=== PATIENT | female | born 1955 | race Caucasian/White ===

== ENCOUNTER 2018-03-02 15:43 | Emergency (ER) | payer MEDICARE ==
[2018-03-02 17:41] VITALS: BP 112/74
[2018-03-02] MEDS ORDERED: Azithromycin TAB* 250 MG PO ONE (18:25)
--- NOTE | 2018-03-02 18:28 | UC ---
Respiratory Complaint HPI - HPI Summary HPI Summary: This patient is a 63 year old F presenting [place] [facility] believes she has bronchitis and states sx began yesterday. The patient rates the pain 10/10 in severity. Patient reports sore throat, productive cough, fever, post nasal drip, and chest tightness w/ cough. Patient denies ear pair, CP, chills, and wheezing. She states this feels like her typical sx when she gets bronchitis and is requesting abx. She states that she has Afib and that the chest sensation does not feel like it is heart related. - History of Current Complaint Chief Complaint: UCRespiratory Stated Complaint: COUGH Time Seen by Provider: 03/02/18 18:19 Hx Obtained From: Patient Onset/Duration: Lasting Days - 1, Still Present Timing: Constant Severity Initially: Severe Severity Currently: Severe Pain Intensity: 10 Pain Scale Used: 0-10 Numeric Character: Cough: Productive Associated Signs And Symptoms: Positive: Negative - CP, Fever. Negative: Chills - Allergies/Home Medications Allergies/Adverse Reactions: Allergies Allergy/AdvReac Type Severity Reaction Status Date / Time metronidazole [From Flagyl] Allergy Rash Verified 03/02/18 17:42 NSAIDS (Non-Steroidal Allergy Nausea Verified 03/02/18 17:42 Anti-Inflamma sulindac [From Clinoril] Allergy Bleeding Verified 03/02/18 17:42 Home Medications: Home Medications Famotidine TAB* [Pepcid 20 MG TAB*] 1 tab 03/02/18 [History] PMH/Surg Hx/FS Hx/Imm Hx Cardiovascular History: Atrial Fibrillation Neurological History: Other Other Neurological History: fibromyalgia Other History Of: Anticoagulant Therapy - Surgical History Surgical History: Yes Surgery Procedure, Year, and Place: 09/21 ANEURYSM CLIPPED AT [facility], ANEURYSM COILED X2 01/20 AT [facility], L4-S1 FUSED 1998 AT [facility] [place], PARTIAL HYSTERECTOMY 2004 AT [facility] [place], DORSAL COLUMN STIMULATOR 1997 AND FUSION PUMP 1998, FEMUR MARGARITA 11/22 NO MRIs DUE TO DORSAL COLUMN/SPINAL STIMULATOR- NOT MRI SAFE. Patient states dorsal column stimulator and intrathecal pump removed June 2015 - Family History Known Family History: Positive: Cardiac Disease, Hypertension - Social History Alcohol Use: None Substance Use Type: None Substance Use Comment - Amount & Last Used: oxycontin and oxycodone Smoking Status (MU): Light Every Day Tobacco Smoker Type: Cigarettes Amount Used/How Often: 5-10 cigarettes/day Length of Time of Smoking/Using Tobacco: 38 Have You Smoked in the Last Year: Yes When Did the Patient Quit Smoking/Using Tobacco: 2011 - Immunization History Most Recent Influenza Vaccination: 2013 Most Recent Tetanus Shot: pt not sure Most Recent Pneumonia Vaccination: 2013 Review of Systems Constitutional: Fever ENT: Sore Throat, Other - post nasal drip Respiratory: Cough Cardiovascular: Other - chest tightness with cough All Other Systems Reviewed And Are Negative: Yes Physical Exam - Summary Physical Exam Summary: General: well-appearing, no pain distress Skin: warm, color reflects adequate perfusion, dry Head: normal Eyes: EOMI, JERILYN ENT: positive rhinorrhea, positive posterior pharynx erythema, anterior cervical lymphadenopathy Neck: supple, nontender Respiratory: CTA, breath sounds present Cardiovascular: RRR Abdomen: soft, nontender Bowel: present Musculoskeletal: normal, strength/ROM intact Neurological: sensory/motor intact, A&O x3 Psychological: affect/mood appropriate Triage Information Reviewed: Yes Vital Signs: Initial Vital Signs Temp 97.2 F 03/02/18 17:36 Pulse 112 03/02/18 17:36 Resp 18 03/02/18 17:36 BP 112/74 03/02/18 17:36 Pulse Ox 99 03/02/18 17:36 Vital Signs Reviewed: Yes UC Diagnostic Evaluation - Laboratory O2 Sat by Pulse Oximetry: 99 Respiratory Course/Dx - Course Course Of Treatment: VIRAL VERSES BACTERIAL CAUSES OF INFECTION AND THE ROLE OF ANTIBIOTICS WERE DISCUSSED. AT THIS TIME, THE PATIENT PREFERS TO START ANTIBIOTICS. - Differential Dx/Diagnosis Provider Diagnoses: BRONCHITIS Discharge - Sign-Out/Discharge Documenting (check all that apply): Patient Departure All imaging exams completed and their final reports reviewed: No Studies - Discharge Plan Condition: Stable Disposition: HOME Prescriptions: Albuterol HFA INHALER* [Ventolin HFA Inhaler*] 2 puff INH Q4H PRN #1 mdi PRN Reason: Wheezing Azithromycin 250 mg PO DAILY #4 tablet Patient Education Materials: Acute Bronchitis (ED) Referrals: Jesus Rod MD [Primary Care Provider] - Additional Instructions: FOLLOW UP WITH YOUR DOCTOR IF NOT COMPLETELY IMPROVED. GET RECHECKED FOR ANY WORSENING OF YOUR CONDITION OR QUESTIONS OR CONCERNS. - Billing Disposition and Condition Condition: STABLE Disposition: Home - Attestation Statements Document Initiated by Gioibe: Yes Documenting Scribe: Armani Devi Provider For Whom Gioibdemond is Documenting (Include Credential): Chencho Norris MD Scribe Attestation: IArmani scribed for Chencho Norris MD on 03/02/18 at 2219. Scribe Documentation Reviewed: Yes Provider Attestation: The documentation as recorded by the Armani austin accurately reflects the service I personally performed and the decisions made by me, Chencho Norris MD
== END 2018-03-02 18:40 | disposition home or self-care (01) ==
LOC: UCEAST 15:43
DX: J40 Bronchitis, not specified as acute or chronic (principal); Z88.1 Allergy status to other antibiotic agents; Z88.6 Allergy status to analgesic agent
CPT/HCPCS: 99212; A9270-GY; G0463

== ENCOUNTER 2021-02-25 10:19 | Inpatient (IN) ==
[2021-02-25] MEDS ORDERED: Albuterol HFA INHALER 8 gm MDI INH ONE (13:50)
[2021-02-25 14:01] LABS: ABS Basophils 0.1 10^3/ul (0-0.2); ABS Eosinophils 0.1 10^3/ul (0-0.6); ABS Lymphocytes 2.9 10^3/ul (1.0-4.8); ABS Monocytes 0.8 10^3/ul (0-0.8); ABS Neutrophils 7.3 10^3/ul (1.5-7.7); Eosinophil % 1.3 %; Hematocrit 37 % (35-47); Hemoglobin 12.1 g/dL (12.0-16.0); Lymphocyte % 25.9 %; Mean Corpuscular HGB Conc 33 g/dL (31-36); Mean Corpuscular Hemoglobin 33 pg (27-31); Mean Corpuscular Volume 99 fL (80-97); Mean Platelet Volume 7.6 fL (7.4-10.4); Platelet Count 278 10^3/uL (150-450); Red Blood Count 3.68 10^6 /uL (3.70-4.87); Red Cell Distribution Width 16 % (10-15); White Blood Count 11.3 10^3/uL (3.5-10.8)
[2021-02-25 14:16] LABS: Albumin/Globulin Ratio 1.2 (1-3); C Reactive Protein 125.41 mg/L (<8.01); Calcium 9.2 mg/dL (8.6-10.3); EGFR African American 81.2 (>60); EGFR Non-African American 67.1 (>60); Globulin 3.4 g/dL (2-4); Potassium 3.4 mmol/L (3.5-5.0); Total Bilirubin 0.4 mg/dL (0.2-1.0); Total Protein 7.4 g/dL (6.4-8.9)
[2021-02-25 14:17] LABS: Activated Partial Thrombo Time 67.2 seconds (26.0-38.0); Troponin I 0.01 ng/mL (<0.03)
[2021-02-25 14:25] LABS: Urine Appearance Clear; Urine Blood 1+ (Negative); Urine Color Yellow; Urine Ketones Negative (Negative); Urine Protein 1+(30 mg/dL) (Negative); Urine Specific Gravity 1.026 (1.002-1.030); Urine Urobilinogen Negative (Negative)
[2021-02-25 14:26] LABS: Urine Bilirubin Negative (Negative); Urine Glucose Negative (Negative); Urine Nitrite Negative (Negative)
[2021-02-25 14:41] LABS: Urine Bacteria Absent (Absent); Urine Red Blood Cell 1+(3-5/hpf) (Absent); Urine Squamous Epithelial Cell Present (Absent); Urine White Blood Cell Absent (Absent)
[2021-02-25 14:47] LABS: INR 5.27 (0.86-1.15)
[2021-02-25] MEDS ORDERED: Albuterol/Ipratropium NEB.SOL (2.5/0.5 MG) 3 ML NEB.SOLN INH ONE (15:33)
[2021-02-25] MEDS ORDERED: Warfarin - No Order Today **NOTE FOLLOW UP ONE (17:00)
[2021-02-25 17:06] LABS: Rapid COVID-19 Molecular Undetected (Undetected)
[2021-02-25] MEDS ORDERED: Magnesium Hydroxide LIQ 30 ML UDC PO PRN (17:25)
[2021-02-25] MEDS ORDERED: Potassium Chlor 20 meq TAB.ER PO ONE (17:40)
[2021-02-25] MEDS ORDERED: Warfarin per PHARMACY **NOTE FOLLOW UP SCH (18:00)
[2021-02-25] MEDS: oxyCODONE/Acetamin 5/325 mg TAB PO PRN (19:34)
[2021-02-25] MEDS: Nicotine PATCH 21 MG/24 HR PATCH TRANSDERM SCH (19:35)
[2021-02-25] MEDS: Mometasone/Formoter 100/5 MDI INH SCH (22:23)
[2021-02-25] MEDS: Albuterol HFA INHALER 8 gm MDI INH PRN (22:26)
[2021-02-26] MEDS: DULoxetine DR 60 mg CAP PO SCH (07:59)
[2021-02-26] MEDS: oxyCODONE/Acetamin 5/325 mg TAB PO PRN ×3 (08:00→21:14)
[2021-02-26] MEDS: Nicotine PATCH 21 MG/24 HR PATCH TRANSDERM SCH (08:02)
[2021-02-26] MEDS: Mometasone/Formoter 100/5 MDI INH SCH ×2 (08:41→21:42)
[2021-02-26] MEDS: SPIRIVA Respimat (tiotropium) 2.5 mcg/inh Inhaler INH SCH (08:43)
[2021-02-26] MEDS: methylPREDNISolone SOD 40 mg/ml 1 ml VIAL IV SCH ×2 (10:54→21:13)
[2021-02-26 11:04] LABS: INR 4.69 (0.86-1.15)
[2021-02-26 11:07] LABS: EGFR African American 85.9 (>60); Potassium 3.9 mmol/L (3.5-5.0)
[2021-02-26 11:19] LABS: ABS Lymphocytes 1.3 10^3/ul (1.0-4.8); ABS Monocytes 0.4 10^3/ul (0-0.8); ABS Neutrophils 7.4 10^3/ul (1.5-7.7); Eosinophil % 0.1 %; Hematocrit 37 % (35-47); Hemoglobin 12.3 g/dL (12.0-16.0); Mean Corpuscular HGB Conc 33 g/dL (31-36); Mean Corpuscular Hemoglobin 34 pg (27-31); Mean Corpuscular Volume 102 fL (80-97); Mean Platelet Volume 7.5 fL (7.4-10.4); Platelet Count 244 10^3/uL (150-450); Red Blood Count 3.61 10^6 /uL (3.70-4.87); Red Cell Distribution Width 16 % (10-15); White Blood Count 9.1 10^3/uL (3.5-10.8)
[2021-02-26] MEDS ORDERED: Warfarin - No Order Today **NOTE FOLLOW UP ONE (17:00)
[2021-02-26] MEDS ORDERED: Warfarin DAILY REMINDER **NOTE FOLLOW UP SCH (17:00)
[2021-02-26] MEDS: Albuterol HFA INHALER 8 gm MDI INH PRN (21:40)
[2021-02-27] MEDS: oxyCODONE/Acetamin 5/325 mg TAB PO PRN (06:29)
[2021-02-27 06:36] LABS: INR 3.14 (0.86-1.15)
[2021-02-27] MEDS: Mometasone/Formoter 100/5 MDI INH SCH (08:05)
[2021-02-27] MEDS: Albuterol HFA INHALER 8 gm MDI INH PRN (08:06)
[2021-02-27] MEDS: SPIRIVA Respimat (tiotropium) 2.5 mcg/inh Inhaler INH SCH (08:06)
[2021-02-27] MEDS: DULoxetine DR 60 mg CAP PO SCH (08:48)
[2021-02-27] MEDS: methylPREDNISolone SOD 40 mg/ml 1 ml VIAL IV SCH (08:48)
[2021-02-27] MEDS: Nicotine PATCH 21 MG/24 HR PATCH TRANSDERM SCH (08:48)
[2021-02-27 12:06] VITALS: BP 141/72
== END 2021-02-27 15:45 | disposition home or self-care (01) | DRG 192 ==
LOC: ED 10:19 → MED 17:25 → SUATTDRO 17:25
PROVIDERS: ADMIT Internal Medicine; ATTEND Hospitalist

== ENCOUNTER 2021-07-05 05:56 | Inpatient (IN) ==
[~2021-07-05 05:56] MED LIST: BUPIVACAINE **LIPOSOME/PF 13.3 MG/ML (266MG/ 20ML) VIAL (RESTRICTED) INFIL ONE
[2021-07-05] MEDS ORDERED: Buffered Lidocaine 1% SYRIN 1 ml INTRADERM ONE ×2 (06:00→07:28)
[2021-07-05] MEDS ORDERED: Lactated Ringers 1000 ml BAG 1,000 ML IV SCH (06:00)
[2021-07-05] MEDS ORDERED: Famotidine IV 10 MG/ML 2 ml VIAL (20 mg) IV ONE (06:00)
[2021-07-05] MEDS ORDERED: Bupivacaine 0.25% SDV 30 ML ONE ×2 (07:01→09:09)
[2021-07-05] MEDS ORDERED: Bupivacaine 0.5% W/EPI SDV 10 ML VIAL INJ ONE (07:01)
[2021-07-05] MEDS ORDERED: Lidocaine 1% w EPI 1:200,000 SDV 30 ML VIAL ONE (07:01)
[2021-07-05] MEDS ORDERED: Midazolam 5 mg/5 ml VIAL 1 mg/ml 5 ml VIAL (5 mg) ONE (07:14)
[2021-07-05] MEDS ORDERED: fentaNYL 100 mcg/2 ml 50 MCG/ML VIAL ONE (07:14)
[2021-07-05] MEDS ORDERED: ROPIVACAINE 5 MG/ML 30 ML BTL (0.5%) ONE (07:15)
[2021-07-05] MEDS ORDERED: Lidocaine 2% PF 5 ML VIAL ONE ×2 (07:15→07:27)
[2021-07-05] MEDS ORDERED: Famotidine IV 10 MG/ML 2 ml VIAL (20 mg) ONE (07:22)
[2021-07-05] MEDS ORDERED: ceFAZolin 2 GM PREMIX 2 GM/50 ML BAG ONE (07:22)
[2021-07-05] MEDS ORDERED: Rocuronium 50 mg VIAL 10 mg/ml 5 ml VIAL (50 mg) ONE (07:27)
[2021-07-05] MEDS ORDERED: fentaNYL 250 mcg/5 ml 50 MCG/ML 5 ml VIAL (250 MCG) ONE (07:33)
[2021-07-05] MEDS ORDERED: Ketamine HCL 50 mg/ml 10 ml VIAL (500 MG) ONE (08:23)
[2021-07-05] MEDS ORDERED: EPHEDrine (Pressors) 50 MG/ML VIAL ONE (08:29)
[2021-07-05] MEDS ORDERED: HYDROmorphone 0.5 MG/0.5 ML SYRINGE ONE ×2 (08:52→09:49)
[2021-07-05] MEDS ORDERED: Ondansetron 4 mg VIAL 2 MG/ML 2 ml VIAL IV PRN ×2 (08:58→10:57)
[2021-07-05] MEDS ORDERED: Levalbuterol 0.63MG/3ML NEB UNIT OF USE INH PRN (08:58)
[2021-07-05] MEDS ORDERED: fentaNYL 100 mcg/2 ml 50 MCG/ML VIAL IV PRN (08:58)
[2021-07-05] MEDS ORDERED: Naloxone 0.4 mg VIAL 0.4 mg/ml 1 ml VIAL IV PRN (08:58)
[2021-07-05] MEDS ORDERED: Ondansetron 4 mg VIAL 2 MG/ML 2 ml VIAL ONE (08:59)
[2021-07-05] MEDS ORDERED: Dexamethasone IV 4 MG/ML VIAL 1 ml VIAL ONE (08:59)
[2021-07-05] MEDS ORDERED: Levalbuterol HFA INHALER MDI ONE (09:08)
[2021-07-05] MEDS ORDERED: Magnesium Hydroxide LIQ 30 ML UDC PO PRN (10:57)
[2021-07-05] MEDS ORDERED: Lactulose 30 ml UDC PO PRN (10:57)
[2021-07-05] MEDS ORDERED: diPHENhydraMINE 25 mg TAB PO PRN (10:57)
[2021-07-05] MEDS ORDERED: Ondansetron ODT 4 mg TAB 4 MG TAB PO PRN (10:57)
[2021-07-05] MEDS ORDERED: diPHENhydraMINE IV 50 MG/ML 1 ml VIAL (BENADRYL) IV PRN (10:57)
[2021-07-05] MEDS ORDERED: ceFAZolin 1 GM ADVAN 1 GM in NS 0.9% 50 ML 50 ML IVPB SCH (11:00)
[2021-07-05] MEDS ORDERED: Albuterol HFA INHALER 8 gm MDI INH PRN (11:08)
[2021-07-05] MEDS ORDERED: HYDROmorphone 1 MG/1 ML SYRINGE ONE (11:15)
[2021-07-05] MEDS: HYDROmorphone 1 MG/1 ML SYRINGE IV PRN ×2 (11:16→11:23)
[2021-07-05] MEDS: Lactated Ringers 1000 ml BAG 1,000 ML IV SCH ×2 (12:46→23:28)
[2021-07-05] MEDS: ceFAZolin 1 GM ADVAN 1 GM in NS 0.9% 50 ML 50 ML IVPB SCH (15:24)
[2021-07-05] MEDS: Morphine 2 MG/ML SYRINGE IV PRN (16:52)
[2021-07-05] MEDS: Magnesium Hydroxide LIQ 30 ML UDC PO SCH (21:27)
[2021-07-06] MEDS: ceFAZolin 1 GM ADVAN 1 GM in NS 0.9% 50 ML 50 ML IVPB SCH ×2 (01:28→08:24)
[2021-07-06] MEDS: Morphine 2 MG/ML SYRINGE IV PRN (01:45)
[2021-07-06 06:45] LABS: Hematocrit 26 % (35-47); Mean Platelet Volume 7.1 fL (7.4-10.4); Platelet Count 233 10^3/uL (150-450)
[2021-07-06 06:57] LABS: INR 1.18 (0.86-1.15)
[2021-07-06 07:02] LABS: Calcium 8.7 mg/dL (8.6-10.3); eGFR CKD-EPI 95.9 (>60)
[2021-07-06 07:37] VITALS: BP 128/64
[2021-07-06] MEDS: Magnesium Hydroxide LIQ 30 ML UDC PO SCH (08:38)
[2021-07-06] MEDS ORDERED: CMCS: FLUTICAS/UMECLI/VILANT 100-62.5-25 MDI (NF) INH SCH (09:00)
[2021-07-06] MEDS ORDERED: Vitamin THERAPEUTIC TAB PO SCH (09:00)
[2021-07-06] MEDS ORDERED: DULoxetine DR 60 mg CAP PO SCH (09:00)
== END 2021-07-06 15:20 | disposition home or self-care (01) | DRG 470 ==
LOC: AA 05:56 → SSU 12:14
PROVIDERS: ADMIT Orthopaedic Surgery Sports Medicine; ATTEND Orthopaedic Surgery Sports Medicine

== ENCOUNTER 2022-06-04 19:06 | Inpatient (IN) ==
[2022-06-04] MEDS ORDERED: NS 0.9% 1000 ml BAG 1,000 ML IV ONE (19:15)
[2022-06-04 20:14] LABS: Hematocrit 28 % (35-47); Hemoglobin 9.5 g/dL (12.0-16.0); Mean Corpuscular HGB Conc 34 g/dL (31-36); Mean Corpuscular Hemoglobin 33 pg (27-31); Mean Corpuscular Volume 97 fL (80-97); Platelet Count 231 10^3/uL (150-450); Red Blood Count 2.91 10^6 /uL (3.70-4.87); Red Cell Distribution Width 16 % (10-15); White Blood Count 12.2 10^3/uL (3.5-10.8)
[2022-06-04] MEDS ORDERED: cefTRIAXone 1 gm/50 mL D5W 1 GM/50 ML BAG IV ONE (20:32)
[2022-06-04] MEDS ORDERED: Azithromycin 500 mg/250 ml NS 500 MG/250 ML BAG IVPB ONE (20:32)
[2022-06-04 20:37] LABS: High Sens Troponin Baseline 52 pg/mL (<15)
[2022-06-04 20:41] LABS: INR 5.96 (0.88-1.18)
[2022-06-04 20:59] LABS: Hypochromasia 1+; Macrocytosis 1+; Microcytosis 1+; Polychromasia 1+
[2022-06-04 21:00] LABS: ABS Lymphocytes 0.5 10^3/ul (1.0-4.8); ABS Monocytes 0.3 10^3/ul (0-0.8); ABS Neutrophils 11.5 10^3/ul (1.5-7.7); ALT 33 U/L (7-52); AST 56 U/L (13-39); Albumin 3.2 g/dL (3.2-5.2); Albumin/Globulin Ratio 1.3 (1-3); Alcohol, S < 13 mg/dL (<13); Alkaline Phosphatase 99 U/L (35-149); Anion Gap 10 mmol/L (2-11); Blood Urea Nitrogen 39 mg/dL (6-24); CO2 Carbon Dioxide 25 mmol/L (22-32); Calcium 7.9 mg/dL (8.6-10.3); Chloride 99 mmol/L (101-111); Globulin 2.4 g/dL (2-4); Glucose 104 mg/dL (70-100); Lymphocyte % 3.7 %; Potassium 3.6 mmol/L (3.5-5.0); Sodium 134 mmol/L (135-145); Total Protein 5.6 g/dL (6.4-8.9); Toxic Granulation 1+; eGFR CKD-EPI 16.9 (>60)
[2022-06-04] MEDS ORDERED: Lactated Ringers 1000 ml BAG 1,000 ML IV ONE (21:08)
[2022-06-04 21:36] LABS: Magnesium 2.1 mg/dL (1.9-2.7)
[2022-06-04 21:41] LABS: Phosphorus 2.5 mg/dL (2.5-5.0)
[2022-06-04 21:53] LABS: High Sensitivity Troponin 1 Hr 47 pg/mL (<15)
[2022-06-05] MEDS ORDERED: Phytonadione IV (Adult) 10 MG in NS 0.9% 50 ML 50 ML IV ONE (00:02)
[2022-06-05 01:20] LABS: Urine Appearance Cloudy; Urine Bilirubin Negative (Negative); Urine Color Yellow; Urine Glucose Negative (Negative); Urine Ketones Negative (Negative); Urine Nitrite Negative (Negative); Urine Protein 2+ (100 mg/dL) (Negative); Urine Specific Gravity 1.017 (1.002-1.030); Urine Urobilinogen 0.2 (Negative) (Negative); Urine pH 5.5 (5.0-9.0)
[2022-06-05 01:25] LABS: Urine Chloride Concentration < 22 mmol/L; Urine Potassium Concentration 41.1 mmol/L; Urine Sodium Concentration < 18 mmol/L
[2022-06-05 01:36] LABS: Urine Bacteria 3+ (Absent); Urine Granular Casts Present (Absent); Urine Red Blood Cell 1+(3-5/hpf) (Absent); Urine Squamous Epithelial Cell Present (Absent); Urine White Blood Cell 3+(>20/hpf) (Absent)
[2022-06-05 02:54] LABS: Urine Benzodiazepine Screen None Detected (None Detect); Urine Cannabinoids Screen None Detected (None Detect); Urine Opiates Screen None Detected (None Detect)
[2022-06-05] MEDS ORDERED: Haloperidol 5 mg/ml SDV IV/IM 5 MG/ML AMP IV SLOW PU ONE (03:44)
[2022-06-05] MEDS: Nicotine PATCH 21 MG/24 HR PATCH TRANSDERM SCH (03:59)
[2022-06-05 04:02] LABS: Hematocrit 22 % (35-47); Hemoglobin 7.7 g/dL (12.0-16.0); Mean Corpuscular HGB Conc 35 g/dL (31-36); Mean Corpuscular Hemoglobin 34 pg (27-31); Mean Corpuscular Volume 97 fL (80-97); Mean Platelet Volume 7.8 fL (7.4-10.4); Platelet Count 189 10^3/uL (150-450); Red Blood Count 2.27 10^6 /uL (3.70-4.87); Red Cell Distribution Width 17 % (10-15)
[2022-06-05] MEDS: NORMOSOL-R pH 7.4 1000 mL BAG 1,000 ML IV SCH ×2 (04:04→12:31)
[2022-06-05] MEDS ORDERED: Acetaminophen IV 1 GM/100ML 1,000 MG/100 ML BAG IV ONE ×2 (04:08→04:11)
[2022-06-05 04:12] LABS: INR 4.06 (0.88-1.18)
[2022-06-05 04:20] LABS: ABS Lymphocytes 0.3 10^3/ul (1.0-4.8); ABS Monocytes 0.1 10^3/ul (0-0.8); ABS Neutrophils 7.5 10^3/ul (1.5-7.7); Eosinophil % 0.1 %; Lymphocyte % 3.8 %
[2022-06-05 04:43] LABS: Calcium 7.1 mg/dL (8.6-10.3); Magnesium 1.8 mg/dL (1.9-2.7); Phosphorus 2.3 mg/dL (2.5-5.0); Potassium 3.8 mmol/L (3.5-5.0); eGFR CKD-EPI 15.2 (>60)
[2022-06-05] MEDS ORDERED: Magnesium Sulfate 2 gm BAG 2 GM/50 ML BAG IVPB ONE (06:09)
[2022-06-05] MEDS ORDERED: NORMOSOL-R pH 7.4 1000 mL BAG 1,000 ML IV SCH (07:00)
[2022-06-05] MEDS ORDERED: Albuterol HFA INHALER 8 gm MDI INH PRN (08:30)
[2022-06-05] MEDS ORDERED: Warfarin per PHARMACY **NOTE FOLLOW UP SCH (09:00)
[2022-06-05] MEDS: methylPREDNISolone SOD SUCC 40 mg/ml 1 ml VIAL IV SCH ×2 (10:27→21:29)
[2022-06-05] MEDS: Mometasone/Formoter 100/5 MDI INH SCH ×4 (10:27→21:48)
[2022-06-05 11:17] LABS: TSH Ultra Thyroid Stim Horm 1.99 mcIU/mL (0.34-5.60)
[2022-06-05] MEDS ORDERED: Albuterol/Ipratropium NEB.SOL (2.5/0.5 MG) 3 ML NEB.SOLN INH SCH (13:00)
[2022-06-05 15:47] LABS: Venous Bicarbonate HCO3 21.2 mmol/L (24-28)
[2022-06-05 16:17] LABS: Anion Gap 14 mmol/L (2-11); Blood Urea Nitrogen 52 mg/dL (6-24); CO2 Carbon Dioxide 21 mmol/L (22-32); Calcium 7.1 mg/dL (8.6-10.3); Chloride 97 mmol/L (101-111); Glucose 139 mg/dL (70-100); Potassium 4.3 mmol/L (3.5-5.0); Sodium 132 mmol/L (135-145); eGFR CKD-EPI 10.6 (>60)
[2022-06-05 16:45] LABS: Ferritin 610.4 ng/mL (11-307)
[2022-06-05] MEDS ORDERED: Warfarin - No Order Today **NOTE FOLLOW UP ONE (17:00)
[2022-06-05] MEDS ORDERED: Lactated Ringers 1000 ml BAG 1,000 ML IV ONE (17:41)
[2022-06-05] MEDS: oxyCODONE/Acetamin 5/325 mg TAB PO PRN (17:47)
[2022-06-05 17:54] LABS: Total Iron Binding Capacity 203 mcg/dL (250-450); Transferrin 145 mg/dL (203-362)
[2022-06-05 17:58] LABS: % Iron Saturation 10 % (15-55); Iron < 20 ug/dL (50-212); Unsaturated Iron Binding 183 ug/dL
[2022-06-05] MEDS: Lactated Ringers 1000 ml BAG 1,000 ML IV SCH ×2 (18:35→21:00)
[2022-06-05] MEDS: Albuterol/Ipratropium NEB.SOL (2.5/0.5 MG) 3 ML NEB.SOLN INH SCH ×3 (19:48→23:30)
[2022-06-05] MEDS: Warfarin DAILY REMINDER **NOTE FOLLOW UP SCH (21:23)
[2022-06-06] MEDS: cefTRIAXone 1 gm/50 mL D5W 1 GM/50 ML BAG IV SCH ×2 (00:11→22:27)
[2022-06-06] MEDS: Azithromycin 500 mg/250 ml NS 500 MG/250 ML BAG IVPB SCH ×2 (00:11→23:09)
[2022-06-06 00:49] LABS: Calcium 7.1 mg/dL (8.6-10.3); Potassium 4.1 mmol/L (3.5-5.0); eGFR CKD-EPI 9.5 (>60)
[2022-06-06] MEDS: Albuterol/Ipratropium NEB.SOL (2.5/0.5 MG) 3 ML NEB.SOLN INH SCH ×7 (01:18→19:33)
[2022-06-06] MEDS: oxyCODONE/Acetamin 5/325 mg TAB PO PRN ×2 (01:53→21:16)
[2022-06-06] MEDS: methylPREDNISolone SOD SUCC 40 mg/ml 1 ml VIAL IV SCH ×3 (03:11→16:15)
[2022-06-06] MEDS: Lactated Ringers 1000 ml BAG 1,000 ML IV SCH (05:10)
[2022-06-06 05:26] LABS: INR 1.36 (0.88-1.18)
[2022-06-06 05:51] LABS: Albumin 2.5 g/dL (3.2-5.2); Albumin/Globulin Ratio 1.3 (1-3); Magnesium 2.6 mg/dL (1.9-2.7); Potassium 3.9 mmol/L (3.5-5.0); Total Bilirubin 0.5 mg/dL (0.2-1.0); Total Protein 4.5 g/dL (6.4-8.9); eGFR CKD-EPI 10.4 (>60)
[2022-06-06 06:04] LABS: Calcium 6.2 mg/dL (8.6-10.3)
[2022-06-06] MEDS ORDERED: Lactated Ringers 1000 ml BAG 1,000 ML IV ONE (07:11)
[2022-06-06] MEDS: Mometasone/Formoter 100/5 MDI INH SCH ×2 (07:50→19:33)
[2022-06-06] MEDS: Nicotine PATCH 21 MG/24 HR PATCH TRANSDERM SCH (09:55)
[2022-06-06] MEDS ORDERED: Lactated Ringers 1000 ml BAG 1,000 ML IV SCH (10:15)
[2022-06-06 13:11] LABS: Calcium 7.1 mg/dL (8.6-10.3); Potassium 4.2 mmol/L (3.5-5.0); eGFR CKD-EPI 9.3 (>60)
[2022-06-06 17:24] LABS: Hematocrit 28 % (35-47); Hemoglobin 9.4 g/dL (12.0-16.0)
[2022-06-06] MEDS: Warfarin DAILY REMINDER **NOTE FOLLOW UP SCH (19:45)
[2022-06-07] MEDS: Mometasone/Formoter 100/5 MDI INH SCH ×2 (01:58→07:56)
[2022-06-07] MEDS: Albuterol/Ipratropium NEB.SOL (2.5/0.5 MG) 3 ML NEB.SOLN INH SCH ×4 (01:58→19:50)
[2022-06-07] MEDS: methylPREDNISolone SOD SUCC 40 mg/ml 1 ml VIAL IV SCH ×3 (02:27→20:34)
[2022-06-07 06:25] LABS: Hematocrit 26 % (35-47); Hemoglobin 8.7 g/dL (12.0-16.0); Mean Corpuscular HGB Conc 34 g/dL (31-36); Mean Corpuscular Hemoglobin 33 pg (27-31); Mean Corpuscular Volume 96 fL (80-97); Mean Platelet Volume 7.1 fL (7.4-10.4); Platelet Count 288 10^3/uL (150-450); Red Blood Count 2.67 10^6 /uL (3.70-4.87); Red Cell Distribution Width 18 % (10-15); White Blood Count 20.8 10^3/uL (3.5-10.8)
[2022-06-07 06:30] LABS: INR 2.43 (0.88-1.18)
[2022-06-07 07:08] LABS: Calcium 6.8 mg/dL (8.6-10.3); Phosphorus 6.3 mg/dL (2.5-5.0); Potassium 4.6 mmol/L (3.5-5.0); eGFR CKD-EPI 8.2 (>60)
[2022-06-07 08:06] LABS: ABS Basophils 0.1 10^3/ul (0-0.2); ABS Lymphocytes 0.2 10^3/ul (1.0-4.8); ABS Neutrophils 20.4 10^3/ul (1.5-7.7); Anisocytosis 1+; Eosinophil % 0.1 %; Lymphocyte % 1.1 %; Nucleated Red Blood Cells % 0.1
[2022-06-07 08:07] LABS: Toxic Granulation 1+
[2022-06-07] MEDS ORDERED: Lorazepam PYXIS KEY PRN (08:09)
[2022-06-07] MEDS ORDERED: NS 0.9% IV ONE (08:30)
[2022-06-07] MEDS ORDERED: FUROSEMIDE IV ONE (08:30)
[2022-06-07] MEDS ORDERED: Furosemide 100 mg/10 ml IV 100 MG in NS 0.9% 100 ml BAG 90 ML IV SCH (08:30)
[2022-06-07] MEDS: LORazepam 2 mg VIAL 1 ml IV PUSH PRN (08:36)
[2022-06-07] MEDS: Nicotine PATCH 21 MG/24 HR PATCH TRANSDERM SCH (08:45)
[2022-06-07] MEDS ORDERED: Furosemide 100 mg/10 ml IV VIAL IV SCH (09:00)
[2022-06-07] MEDS ORDERED: Succinylcholine 200 mg VIAL 20 mg/ml 10 ml VIAL (200 mg) ONE (10:22)
[2022-06-07] MEDS ORDERED: Etomidate 40 mg/20 ml (2 MG/ML) 20 ml VIAL (40 mg) ONE (10:30)
[2022-06-07] MEDS ORDERED: Propofol 10 mg/ml 100 ML BTL 100 ML ONE (10:37)
[2022-06-07] MEDS ORDERED: Norepinephrine 16MCG/ML BAGD5W 0 MCG/0 ML BAG IV ONE (10:37)
[2022-06-07] MEDS: Propofol 10 mg/ml 100 ML BTL 100 ML IV SCH ×2 (10:37→17:39)
[2022-06-07] MEDS ORDERED: Rocuronium 50 mg VIAL 10 mg/ml 5 ml VIAL (50 mg) ONE (10:55)
[2022-06-07] MEDS ORDERED: Rocuronium 50 mg VIAL 10 mg/ml 5 ml VIAL (50 mg) IV ONE (12:03)
[2022-06-07] MEDS: Pantoprazole VIAL 40 MG VIAL IV SCH (12:09)
[2022-06-07] MEDS ORDERED: Acetaminophen IV 1 GM/100ML 1,000 MG/100 ML BAG IV PRN (12:23)
[2022-06-07 12:31] LABS: PO2 Arterial 90 mmHg (80-100)
[2022-06-07] MEDS ORDERED: Warfarin per PHARMACY **NOTE FOLLOW UP SCH (12:37)
[2022-06-07 12:45] LABS: PCO2 Arterial 76 mmHg (35-45)
[2022-06-07] MEDS ORDERED: Albumin Human 25% 25 GM/100 ML BTL IV PRN ×2 (13:18→17:19)
[2022-06-07 13:52] LABS: Calcium 6.8 mg/dL (8.6-10.3); eGFR CKD-EPI 7.1 (>60)
[2022-06-07] MEDS ORDERED: Norepinephrine 16MCG/ML BAG NS 4,000 MCG/250 ML BAG IV SCH (14:00)
[2022-06-07] MEDS: Chlorhexidine MOUTHWASH 0.12% 15 ML UDC SWISH SPIT SCH ×2 (14:02→17:39)
[2022-06-07] MEDS: Norepinephrine 16MCG/ML BAGD5W 4,000 MCG/250 ML BAG IV SCH ×2 (15:08→22:36)
[2022-06-07] MEDS: Heparin 1,000 UNIT/ML 10 ml (10,000 UNITS) CATHLAB/DIALYSIS DIALYSIS ONE ×2 (15:46→16:44)
[2022-06-07] MEDS: Azithromycin 500 mg/250 ml NS 500 MG/250 ML BAG IVPB SCH (21:45)
[2022-06-07] MEDS: Warfarin DAILY REMINDER **NOTE FOLLOW UP SCH (21:59)
[2022-06-07] MEDS: cefTRIAXone 1 gm/50 mL D5W 1 GM/50 ML BAG IV SCH (23:27)
[2022-06-08] MEDS: Chlorhexidine MOUTHWASH 0.12% 15 ML UDC SWISH SPIT SCH ×7 (00:18→21:39)
[2022-06-08] MEDS: Albuterol/Ipratropium NEB.SOL (2.5/0.5 MG) 3 ML NEB.SOLN INH SCH ×4 (02:08→19:42)
[2022-06-08] MEDS: methylPREDNISolone SOD SUCC 40 mg/ml 1 ml VIAL IV SCH ×4 (02:36→20:40)
[2022-06-08] MEDS: Propofol 10 mg/ml 100 ML BTL 100 ML IV SCH ×4 (04:45→20:47)
[2022-06-08 05:12] LABS: Hematocrit 26 % (35-47); Hemoglobin 8.5 g/dL (12.0-16.0); Mean Corpuscular HGB Conc 33 g/dL (31-36); Mean Corpuscular Hemoglobin 33 pg (27-31); Mean Corpuscular Volume 99 fL (80-97); Mean Platelet Volume 7.2 fL (7.4-10.4); Platelet Count 300 10^3/uL (150-450); Red Blood Count 2.59 10^6 /uL (3.70-4.87); Red Cell Distribution Width 18 % (10-15); White Blood Count 27.1 10^3/uL (3.5-10.8)
[2022-06-08 05:48] LABS: Calcium 6.5 mg/dL (8.6-10.3); Magnesium 2.7 mg/dL (1.9-2.7); Phosphorus 7.9 mg/dL (2.5-5.0); Potassium 4.6 mmol/L (3.5-5.0); eGFR CKD-EPI 9.5 (>60)
[2022-06-08 06:10] LABS: Hepatitis B Surface Antigen Nonreactive (Nonreactive)
[2022-06-08 06:27] LABS: Hepatitis B Surface Ab Not Immune (Immune)
[2022-06-08 06:55] LABS: INR 4.51 (0.88-1.18)
[2022-06-08] MEDS: Heparin 1,000 UNIT/ML 10 ml (10,000 UNITS) CATHLAB/DIALYSIS DIALYSIS PRN ×4 (08:15→11:38)
[2022-06-08] MEDS: Pantoprazole VIAL 40 MG VIAL IV SCH (12:06)
[2022-06-08] MEDS: Nicotine PATCH 21 MG/24 HR PATCH TRANSDERM SCH (12:07)
[2022-06-08] MEDS ORDERED: Warfarin - No Order Today **NOTE FOLLOW UP ONE (17:00)
[2022-06-08] MEDS: Warfarin DAILY REMINDER **NOTE FOLLOW UP SCH (17:23)
[2022-06-08] MEDS: cefTRIAXone 1 gm/50 mL D5W 1 GM/50 ML BAG IV SCH (21:39)
[2022-06-08] MEDS: Azithromycin 500 mg/250 ml NS 500 MG/250 ML BAG IVPB SCH (22:24)
[2022-06-08] MEDS: LORazepam 2 mg VIAL 1 ml IV PUSH PRN (23:32)
[2022-06-09] MEDS: Albuterol/Ipratropium NEB.SOL (2.5/0.5 MG) 3 ML NEB.SOLN INH SCH ×4 (00:27→19:20)
[2022-06-09] MEDS: Propofol 10 mg/ml 100 ML BTL 100 ML IV SCH ×4 (01:27→23:14)
[2022-06-09] MEDS: Chlorhexidine MOUTHWASH 0.12% 15 ML UDC SWISH SPIT SCH ×6 (01:28→21:29)
[2022-06-09] MEDS: methylPREDNISolone SOD SUCC 40 mg/ml 1 ml VIAL IV SCH ×3 (04:44→20:39)
[2022-06-09 05:09] LABS: Hematocrit 25 % (35-47); Hemoglobin 8.2 g/dL (12.0-16.0); Mean Corpuscular HGB Conc 33 g/dL (31-36); Mean Corpuscular Hemoglobin 33 pg (27-31); Mean Corpuscular Volume 100 fL (80-97); Mean Platelet Volume 7.5 fL (7.4-10.4); Platelet Count 245 10^3/uL (150-450); Red Blood Count 2.49 10^6 /uL (3.70-4.87); Red Cell Distribution Width 18 % (10-15)
[2022-06-09 05:22] LABS: INR 6.26 (0.88-1.18)
[2022-06-09] MEDS ORDERED: Phytonadione IV (Adult) 10 MG in NS 0.9% 50 ML 50 ML IV ONE (05:30)
[2022-06-09 05:59] LABS: Albumin 2.7 g/dL (3.2-5.2); Albumin/Globulin Ratio 0.9 (1-3); Calcium 6.9 mg/dL (8.6-10.3); Direct Bilirubin 0.6 mg/dL (0.03-0.18); Indirect Bilirubin 0.3 mg/dL (0.3-1.0); Magnesium 2.8 mg/dL (1.9-2.7); Phosphorus 8.4 mg/dL (2.5-5.0); Potassium 4.6 mmol/L (3.5-5.0); Total Bilirubin 0.9 mg/dL (0.2-1.0); Total Protein 5.7 g/dL (6.4-8.9); eGFR CKD-EPI 10.7 (>60)
[2022-06-09] MEDS: Heparin 1,000 UNIT/ML 10 ml (10,000 UNITS) CATHLAB/DIALYSIS DIALYSIS PRN ×4 (07:45→11:06)
[2022-06-09] MEDS: Nicotine PATCH 21 MG/24 HR PATCH TRANSDERM SCH (08:22)
[2022-06-09] MEDS ORDERED: Piperacillin/Tazobac ADVAN 3.375 GM in NS 0.9% 100 ml BAG 100 ML IV ONE (10:13)
[2022-06-09] MEDS ORDERED: Vancomycin 1,000 MG in NS 0.9% 250 ml 250 ML IVPB ONE (10:13)
[2022-06-09] MEDS ORDERED: Vancomycin per Pharmacy 1 EA NOTE FOLLOW UP SCH (11:00)
[2022-06-09] MEDS ORDERED: Zosyn per Pharmacy NOTE FOLLOW UP SCH (11:00)
[2022-06-09] MEDS: Pantoprazole VIAL 40 MG VIAL IV SCH (11:14)
[2022-06-09] MEDS ORDERED: Vancomycin 1,750 MG in NS 0.9% 500 ml BAG 500 ML IVPB ONE (12:00)
[2022-06-09] MEDS: ZOSYN 3.375 GM Q12H per EXTENDED INFUSION IV SCH (15:46)
[2022-06-09] MEDS: Warfarin DAILY REMINDER **NOTE FOLLOW UP SCH (16:24)
[2022-06-09] MEDS ORDERED: Warfarin - No Order Today **NOTE FOLLOW UP ONE (17:00)
[2022-06-09] MEDS: fentaNYL 100 mcg/2 ml 50 MCG/ML VIAL IV SLOW PU PRN (17:31)
[2022-06-10] MEDS: Albuterol/Ipratropium NEB.SOL (2.5/0.5 MG) 3 ML NEB.SOLN INH SCH ×3 (00:33→12:46)
[2022-06-10] MEDS: Chlorhexidine MOUTHWASH 0.12% 15 ML UDC SWISH SPIT SCH ×6 (02:34→22:03)
[2022-06-10] MEDS: ZOSYN 3.375 GM Q12H per EXTENDED INFUSION IV SCH (02:34)
[2022-06-10] MEDS: methylPREDNISolone SOD SUCC 40 mg/ml 1 ml VIAL IV SCH ×2 (04:18→15:17)
[2022-06-10 04:42] LABS: Hematocrit 24 % (35-47); Hemoglobin 7.8 g/dL (12.0-16.0); Mean Corpuscular HGB Conc 32 g/dL (31-36); Mean Corpuscular Hemoglobin 33 pg (27-31); Mean Corpuscular Volume 100 fL (80-97); Mean Platelet Volume 7.7 fL (7.4-10.4); Platelet Count 225 10^3/uL (150-450); Red Blood Count 2.41 10^6 /uL (3.70-4.87); Red Cell Distribution Width 18 % (10-15)
[2022-06-10 04:51] LABS: INR 1.59 (0.88-1.18)
[2022-06-10 05:11] LABS: Calcium 7.8 mg/dL (8.6-10.3); Magnesium 2.9 mg/dL (1.9-2.7); Phosphorus 8.9 mg/dL (2.5-5.0); Vancomycin Random 16.1 mcg/mL; eGFR CKD-EPI 11.6 (>60)
[2022-06-10 05:14] LABS: Potassium 5.5 mmol/L (3.5-5.0)
[2022-06-10] MEDS: fentaNYL 100 mcg/2 ml 50 MCG/ML VIAL IV SLOW PU PRN (05:42)
[2022-06-10] MEDS ORDERED: Vancomycin Random Level NOTE FOLLOW UP ONE (06:00)
[2022-06-10] MEDS: Nicotine PATCH 21 MG/24 HR PATCH TRANSDERM SCH (08:00)
[2022-06-10] MEDS ORDERED: Albuterol/Ipratropium NEB.SOL (2.5/0.5 MG) 3 ML NEB.SOLN INH PRN ×2 (13:27→13:29)
[2022-06-10] MEDS: Pantoprazole VIAL 40 MG VIAL IV SCH (15:17)
[2022-06-11] MEDS: Chlorhexidine MOUTHWASH 0.12% 15 ML UDC SWISH SPIT SCH ×3 (00:58→11:10)
[2022-06-11] MEDS: fentaNYL 100 mcg/2 ml 50 MCG/ML VIAL IV SLOW PU PRN (00:58)
[2022-06-11] MEDS ORDERED: Lorazepam PYXIS KEY PRN ×2 (12:14→12:53)
[2022-06-11] MEDS ORDERED: LORazepam 2 mg VIAL 1 ml IV PUSH PRN ×2 (12:14→12:53)
[2022-06-11] MEDS ORDERED: Morphine 10 MG/ML VIAL (1 ml) IV PRN (12:16)
[2022-06-11] MEDS ORDERED: Morphine 10 MG/ML VIAL (1 ml) IV ONE (12:51)
[2022-06-11] MEDS ORDERED: LORazepam 2 mg VIAL 1 ml IV PUSH ONE (12:53)
[2022-06-11 13:16] VITALS: BP 114/57
== END 2022-06-11 13:50 | disposition expired | DRG 870 ==
LOC: ED 19:06 → EDHOLD 21:29 → ICU 06-05 17:07
PROVIDERS: ADMIT Internal Medicine; ATTEND Internal Medicine